=== PATIENT | female | born 1950 | race Hispanic/Latino ===

== ENCOUNTER 2017-10-30 07:56 | Day surgery (SDC) | payer MEDICARE, OTHER ==
[2013-10-27 09:00] VITALS: BMI 30.1
[2017-10-30] MEDS ORDERED: Propofol 10 mg/ml Inj (20 ML) ONE ×2 (11:34→11:51)
[2017-10-30] MEDS ORDERED: Sodium Chloride 0.9% 1,000 ML IV SCH (12:00)
[2017-10-30 12:47] VITALS: BP 110/57; PULSE 57; RESP 16; TEMP 97.7; O2SAT 100
== END 2017-10-30 12:54 | disposition home or self-care (01) ==
LOC: ENDO 07:56
PROVIDERS: ATTEND Internal Medicine Gastroenterology
DX: K22.70 Barrett's esophagus without dysplasia (principal); K31.7 Polyp of stomach and duodenum; K25.9 Gastric ulcer, unspecified as acute or chronic, without hemorrhage or perforation; K29.50 Unspecified chronic gastritis without bleeding; K44.9 Diaphragmatic hernia without obstruction or gangrene; K21.9 Gastro-esophageal reflux disease without esophagitis; Z85.038 Personal history of other malignant neoplasm of large intestine
CPT/HCPCS: 43239; 88305; 88312; 88342; J2001; J2704; J7030

== ENCOUNTER 2018-03-29 09:42 | Day surgery (SDC) | payer MEDICARE, OTHER ==
[2013-10-27 09:00] VITALS: BMI 30.1
[2018-03-29] MEDS ORDERED: Sodium Chloride 0.9% 1,000 ML IV SCH (11:15)
[2018-03-29] MEDS ORDERED: Propofol 10 mg/ml Inj (20 ML) ONE (11:20)
[2018-03-29 13:24] VITALS: BP 126/64; PULSE 56; RESP 18; TEMP 97.3; O2SAT 99
== END 2018-03-29 13:54 | disposition home or self-care (01) ==
LOC: ENDO 09:42
PROVIDERS: ATTEND Internal Medicine Gastroenterology
DX: K22.70 Barrett's esophagus without dysplasia (principal); K44.9 Diaphragmatic hernia without obstruction or gangrene; K29.50 Unspecified chronic gastritis without bleeding
CPT/HCPCS: 43239; 88305; 88342; J2001; J2704; J7030; J7040